=== PATIENT | female | born 1945 | race Caucasian/White ===

== ENCOUNTER 2024-07-23 06:29 | Day surgery (SDC) | payer MEDICARE, OTHER, SELFPAY ==
[2024-07-23 13:21] VITALS: BP 132/75
[2024-07-23 13:32] VITALS: BMI 34.2
[2024-07-23 15:01] VITALS: BP 123/63
[2024-07-23 15:15] VITALS: BP 112/66
[2024-07-23 15:30] VITALS: BP 127/89
[2024-07-23 15:45] VITALS: BP 122/74
[2024-07-23 16:00] VITALS: BP 139/78
== END 2024-07-23 16:24 | disposition home or self-care (01) ==
LOC: GI 06:29
PROVIDERS: ATTENDING PHYSICIAN Internal Medicine Critical Care Medicine; FAMILY PHYSICIAN Family Medicine
DX: R59.0 Localized enlarged lymph nodes (principal)
CPT/HCPCS: 31629; 31623; 31654; 88172; 88173; 88305; 88112; 88177

== ENCOUNTER → 2024-11-29 04:00 | Outpatient (REF) | payer MEDICARE, OTHER, SELFPAY | LOC: DHSLP 04:00 | PROVIDERS: ATTENDING PHYSICIAN Internal Medicine; FAMILY PHYSICIAN Family Medicine | DX: G47.33 Obstructive sleep apnea (adult) (pediatric) (principal) | CPT/HCPCS: 95806 ==